=== PATIENT | male | born 2000 | race Caucasian/White ===

== ENCOUNTER 2018-03-25 17:17 | Emergency (ER) | payer MEDICAID ==
[~2018-03-25] VITALS: Ht 177.8 cm; Wt 72.6 kg
[2018-03-25 17:26] VITALS: Ht 177.8 cm; Wt 72.6 kg
[2018-03-25 23:03] VITALS: BP 107/64
== END 2018-03-25 23:03 | disposition home or self-care (01) ==
LOC: ED 17:17
DX: J02.9 Acute pharyngitis, unspecified (principal); J45.909 Unspecified asthma, uncomplicated
CPT/HCPCS: 87804; J1100